=== PATIENT | male | born 1965 | race Caucasian/White ===

== ENCOUNTER 2022-02-24 08:23 | Emergency (ER) | payer BC, OTHER ==
[~2022-02-24] VITALS: Ht 177.8 cm; Wt 81.8 kg
[2022-02-24] MEDS ORDERED: LACTATED RINGER'S 1,000 ML IV ONE (09:00)
[2022-02-24 09:27] LABS: Basophils # (auto) 0 10 ^3/uL (0-0.2); Basophils % (auto) 0.5 % (0.0-2.0); Eosinophils # (auto) 0.1 10 ^3/uL (0-0.8); Eosinophils % (auto) 1.3 % (0.0-7.0); Hematocrit 40.1 % (41.0-53.0); Hemoglobin 13.2 g/dL (13.5-17.5); Lymphocytes # (auto) 2.5 10 ^3/uL (0.4-5.4); Lymphocytes % (auto) 29.5 % (10.0-50.0); Mean Corpuscular Hemoglobin 30.2 pg (28.0-32.0); Mean Corpuscular Volume 91.4 fL (80.0-100.0); Monocytes # (auto) 0.5 10 ^3/uL (0-1.3); Monocytes % (auto) 5.9 % (0.0-12.0); Neutrophils # (auto) 5.2 10 ^3/uL (1.6-8.6); Neutrophils % (auto) 62.8 % (37.0-80.0); Nucleated Red Blood Cells % 0.1 %; Red Blood Cells 4.39 10^6/uL (4.5-5.90); Red Cell Distribution Width 13.9 % (11.8-14.3); White Blood Cell 8.3 10^3/uL (4.4-10.8)
[2022-02-24 09:43] LABS: Albumin 3.2 g/dL (3.4-5.0); Calcium 8.5 mg/dL (8.5-10.1); Potassium 3.9 mmol/L (3.5-5.1)
[2022-02-24 09:46] LABS: BUN/Creatinine Ratio 16.5; Bilirubin, Total 0.2 mg/dL (0.2-1.0); Total Protein 6.4 g/dL (6.4-8.2)
[2022-02-24 09:49] LABS: INR 1.03 (0.9-1.15)
[2022-02-24 14:58] LABS: Basophils # (auto) 0 10 ^3/uL (0-0.2); Basophils % (auto) 0.4 % (0.0-2.0); Eosinophils # (auto) 0 10 ^3/uL (0-0.8); Eosinophils % (auto) 0.2 % (0.0-7.0); Hematocrit 38.4 % (41.0-53.0); Hemoglobin 12.7 g/dL (13.5-17.5); Lymphocytes # (auto) 1.6 10 ^3/uL (0.4-5.4); Lymphocytes % (auto) 17.3 % (10.0-50.0); Mean Corpuscular Hgb Conc. 33.1 g/dL (32.0-36.0); Mean Corpuscular Volume 90.4 fL (80.0-100.0); Monocytes # (auto) 0.4 10 ^3/uL (0-1.3); Monocytes % (auto) 4.4 % (0.0-12.0); Neutrophils # (auto) 7.1 10 ^3/uL (1.6-8.6); Neutrophils % (auto) 77.7 % (37.0-80.0); Nucleated Red Blood Cells % 0.1 %; Red Blood Cells 4.25 10^6/uL (4.5-5.90); Red Cell Distribution Width 13.6 % (11.8-14.3); White Blood Cell 9.1 10^3/uL (4.4-10.8)
[2022-02-24 16:23] VITALS: BP 118/75
== END 2022-02-24 16:35 | disposition home or self-care (01) ==
LOC: EDBD 08:23 → ER 08:26
DX: K64.8 Other hemorrhoids (principal); Z98.890 Other specified postprocedural states
CPT/HCPCS: 36415; 80053; 85025; 85610; 86850; 86900; 86901; 93005; 96360; 96361